=== PATIENT | male | born 1960 | race Caucasian/White ===

== ENCOUNTER → 2017-05-11 11:55 | Outpatient (CLI) | payer BC, SELFPAY | PROVIDERS: PCP Family Medicine; Visit Provider Family Medicine | DX: R06.81 Apnea, not elsewhere classified (principal); R06.83 Snoring; R40.0 Somnolence | CPT/HCPCS: 95806 ==

== ENCOUNTER → 2019-11-02 13:20 | Outpatient (CLI) | payer BC, OTHER, SELFPAY ==
--- NOTE | 2019-11-02 | XR_ITS ---
PROCEDURE: XR CHEST 2V CLINICAL HISTORY: COMPARISON: No exams were available for comparison FINDINGS: The cardiomediastinal silhouette and pulmonary vascularity are within normal limits. The lungs are clear without infiltrates, suspicious nodules, or pleural effusions. No acute bony abnormalities. IMPRESSION: No acute findings. Dictated by: Dr. Johnathan Diehl MD 11/02/2019 13:[address] Johnathan Diehl MD in [place] 11/02/2019 13:45
== END ==
PROVIDERS: PCP Family Medicine; Visit Provider Family Medicine
DX: I20.8 Other forms of angina pectoris (principal)
CPT/HCPCS: 71046

== ENCOUNTER 2022-03-15 08:09 | Emergency (ER) | payer OTHER, SELFPAY ==
--- NOTE | 2022-03-15 08:09 | ECG_ITS ---
APPROVED REPORT Exam: Resting ECG HR:80 bpm ECG Measurements Heart Rate 80 AXES ND 182 P 57 QRSd 90 QRS 76 QT 361 T 64 QTc 398 Conclusion SINUS RHYTHM NORMAL ECG UNCONFIRMED REPORT Electronically signed by : Aurelio Hernandez MD 03/15/2022 21:10:00
--- NOTE | 2022-03-15 08:09 | PC.NURSE ---
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 EKG obtained and given to ER MD. ER MD at during EKG, along with Rubina Ortega RN for triage.
[2022-03-15 08:11] VITALS: BP 171/107; PULSE 77; RESP 16; TEMP 36.6; O2SAT 100; BMI 28.8
--- NOTE | 2022-03-15 08:14 | XR_ITS ---
FINAL REPORT CLINICAL HISTORY: cp COMPARISON: 11/02/2019 FINDINGS: PORTABLE CHEST The heart is normal in size. The mediastinum is unremarkable. There is severe right basilar atelectasis. There is elevation of the right diaphragm. There is no pneumothorax. IMPRESSION: Severe right basilar atelectasis. No acute process. Reviewed, Interpreted and Dictated by Paul Vargas MD Transcribed by Juju Andersen Authenticated and [facility]
--- NOTE | 2022-03-15 08:18 | HMH.EDGENADL ---
Discharge Plan Disposition Chief Complaint: Chest Pain Prescriptions Prescriptions: No Action No Known Home Medications Referrals Follow up/Referrals: Provider,MD Jody [Primary Care Provider] - See instructions Discharge ED Provider: Jakob Pruitt General Adult HPI General Chief complaint: Chest Pain Stated complaint: Chest Pain Time Seen by Provider: 03/15/22 08:22 History of Present Illness HPI narrative: Patient presents with midsternal chest discomfort with which he awoke at approximately 7:40 AM this morning. He states the discomfort was moderate in severity at time of onset and presently is a 2 on a 0-to-10 scale. He denies exacerbating or alleviating factors. He denies radiation he denies nausea dyspnea or diaphoresis. Related Data Home Medications Medication Instructions Recorded Confirmed No Known Home Medications 03/15/22 03/15/22 Allergies Allergy/AdvReac Type Severity Reaction Status Date / Time No Known Allergies Allergy Verified 03/15/22 08:47 [facility] Medical History (Updated 03/15/22 @ 08:47 by Rubina Almaguer RN) No significant past medical history Social History Smoking Status: Unknown if ever smoked ROS Obtained: Yes All systems reviewed & no additional complaints except as documented Physical Exam General General appearance: alert and in no apparent distress Head Head exam: atraumatic, normocephalic and normal inspection Eye Eye exam: Present normal appearance, PERRL and EOMI ENT ENT exam: Present normal exam, normal oropharynx, mucous membranes moist, TM's normal bilaterally and normal external ear exam Neck Neck exam: Present normal inspection, full ROM and trachea midline; Absent meningismus or lymphadenopathy Chest Chest inspection: Present normal inspection and symmetric chest wall rise; Absent tenderness Respiratory Respiratory exam: Present normal lung sounds bilaterally; Absent respiratory distress Cardiovascular Cardiovascular exam: Present regular rate and normal rhythm; Absent JVD Abdominal Exam Abdominal exam: Present soft and normal bowel sounds; Absent distention, tenderness or guarding Extremities Exam Extremities exam: Present normal inspection, full ROM and normal capillary refill; Absent calf tenderness Back Exam Back exam: Present normal inspection; Absent tenderness Neurological Exam Neurological exam: Present alert and oriented X3 Psychiatric Psychiatric exam: Present normal affect and normal mood Skin Skin exam: Present warm, dry, intact and normal color Lymphatic Lymphatic Findings: no adenopathy Medical Decision Making Medical Records Medical records reviewed: Yes I reviewed the patient's medical records. Stephan Inquiry Pt receiving controlled substance: No Vital Signs: 03/15/22 08:11 03/15/22 08:30 Temperature 97.8 F Temperature Source Oral Pulse Rate 76 Pulse Rate [Right] 77 Respiratory Rate 16 15 Blood Pressure 137/97 H Blood Pressure [Right Arm] 171/107 H Blood Pressure Mean 111 Blood Pressure Mean [Right Arm] 128 Blood Pressure Source [Right Arm] Automatic Cuff Blood Pressure Position [Right Arm] Sitting 02 Sat by Pulse Oximetry 100 96 Oxygen Delivery Method Room Air Room Air Lab Data Lab Results 03/15/22 08:15: WBC 8.7, RBC 5.04, Hgb 15.1, Hct 45.8, MCV 90.8, MCH 29.9, MCHC 32.9, RDW 13.9, Plt Count 235, MPV 7.8, Neut % (Auto) 55.2, Lymph % (Auto) 33.4, [place] % (Auto) 7.8, Eos % (Auto) 2.5, Baso % (Auto) 1.2, Neut # (Auto) 4.8, Lymph # (Auto) 2.9, [place] # (Auto) 0.7, Eos # (Auto) 0.2, Baso # (Auto) 0.1 03/15/22 08:15: Sodium 141, Potassium 3.4 L, Chloride 98, Carbon Dioxide 29, Anion Gap 17.4 H, BUN 15, Creatinine 1.00, Estimated Creat Clear 91, Estimated GFR 75, Est GFR ( Amer) 91, Glucose 105 H, Calcium 9.4, Total Bilirubin 0.4, AST 32, ALT 29, Alkaline Phosphatase 121, Troponin I < 0.01, Total Protein 7.1, Albumin 4.4, Globulin 2.7,
--- NOTE | 2022-03-15 08:19 | PC.NURSE ---
Radiology at BS for portable chest
[2022-03-15 08:23] LABS: Basophils # 0.1 K/mm3 (0-0.2); Basophils % 1.2 % (0.1-2.0); Eosinophils # 0.2 K/mm3 (0.0-0.4); Eosinophils % 2.5 % (0.1-12.0); Hematocrit 45.8 % (42.0-52.0); Hemoglobin 15.1 g/dL (14.1-18.0); Lymphocytes # 2.9 K/mm3 (0.7-4.5); Lymphocytes % 33.4 % (10-50); Mean Corpuscular HGB Conc 32.9 g/dL (31.8-35.4); Mean Corpuscular Hemoglobin 29.9 pg (27.0-31.2); Mean Corpuscular Volume 90.8 fl (80-94); Mean Platelet Volume 7.8 fl (7.4-10.4); Monocytes # 0.7 K/mm3 (0.1-1.0); Monocytes % 7.8 % (1.7-9.3); Neutrophils # 4.8 K/mm3 (1.8-7.8); Neutrophils % 55.2 % (37.0-80.0); Platelet Count 235 K/mm3 (142-424); Red Blood Count 5.04 M/mm3 (4.60-6.20); Red Cell Distribution Width 13.9 % (11.5-17.5); White Blood Count 8.7 K/mm3 (4.8-10.8)
[2022-03-15 08:30] VITALS: BP 137/97; PULSE 76; RESP 15; O2SAT 96
[2022-03-15 08:31] LABS: Alanine Aminotransferase 29 U/L (12-78); Albumin Level 4.4 g/dl (3.5-5.0); Albumin/Globulin Ratio 1.6 (1.1-1.8); Alkaline Phosphatase 121 U/L (38-126); Anion Gap 17.4 mEq/L (5-15); Aspartate Amino Transferase 32 U/L (17-59); Bilirubin,Total 0.4 mg/dl (0.2-1.3); Blood Urea Nitrogen 15 mg/dl (9-20); Calcium 9.4 mg/dl (8.4-10.2); Carbon Dioxide 29 mmol/L (22.0-30.0); Chloride 98 mmol/L (98-107); Creatinine Clearance Estimated 91 mL/min (50-200); Estimated Glomerular Filt Rate 75 ml/min (>60); GFR (African American) 91 ML/MIN (>60); Globulin 2.7 g/dL (1.3-3.2); Glucose 105 mg/dl (74-100); Potassium 3.4 mmoL/L (3.5-5.1); Sodium 141 mmol/L (136-145); Total Protein,Serum 7.1 g/dl (6.3-8.2)
[2022-03-15 08:32] LABS: INR 0.95 (0.9-1.1); Prothrombin Time 10.3 seconds (10.1-12.5)
[2022-03-15 08:44] LABS: Troponin I < 0.01 ng/ml (0.00-0.034)
[2022-03-15 09:00] VITALS: BP 139/89; PULSE 71; O2SAT 94
--- NOTE | 2022-03-15 09:03 | PC.NURSE ---
REBEKAH MAURO at speaking with patient at this time.
--- NOTE | 2022-03-15 09:08 | PC.NURSE ---
Awaiting call back from BRAYAN Fang with cardiology. Spoke with Ruth in his office.
--- NOTE | 2022-03-15 09:23 | PC.NURSE ---
Rounded on pt at this time. Updated him that we were waiting on cardiology callback for consult. Pt agreeable with POC. No new needs at this time
[2022-03-15 09:26] VITALS: PULSE 87
--- NOTE | 2022-03-15 10:10 | PC.NURSE ---
Still awaiting call from BRAYAN Fang with Cardiology at this time.
--- NOTE | 2022-03-15 10:17 | PC.NURSE ---
Dr. Pruitt speaking with BRAYAN Valdovinos with Cardiology at this time
[2022-03-15 10:28] LABS: Coronavirus 19, PCR Not Detected (NotDetected); Influenza A, PCR Not Detected (NotDetected); Influenza B, PCR Not Detected (NotDetected)
--- NOTE | 2022-03-15 10:42 | PC.NURSE ---
LAB COMING FOR TROP
--- NOTE | 2022-03-15 10:44 | PC.NURSE ---
speaking with hospitalist
--- NOTE | 2022-03-15 10:44 | PC.NURSE ---
Dr. Pruitt does want 2nd troponin and Lab is aware to come draw
--- NOTE | 2022-03-15 10:45 | PC.NURSE ---
Notified care management of admission
--- NOTE | 2022-03-15 11:01 | PC.NURSE ---
Lab at BS to draw 2nd troponin
--- NOTE | 2022-03-15 11:33 | PC.NURSE ---
provided pt with lunch tray at this time. Pt resting in bed and has no new needs
[2022-03-15 11:35] LABS: Troponin I < 0.01 ng/ml (0.00-0.034)
--- NOTE | 2022-03-15 12:13 | PC.NURSE ---
Called report to Miranda. Updated pt
--- NOTE | 2022-03-15 12:32 | PC.NURSE ---
Dr. Fredrick Hagan at bedside with pt. HE discussed POC with Dr. Pruitt and decision was made for pt to d/c'ed home with cardiology in the am.
--- NOTE | 2022-03-15 12:43 | EXP.MED.CON ---
History of Present Illness *Admission Date: 03/15/22 *Reason for visit:: Chest pain *History of present illness: Patient is a 62-year-old male who states he woke up this morning and was having midsternal chest comfort. Moderate in severity center of chest, radiating to his side. Denies any nausea dyspnea or diaphoresis. Resolved spontaneously. No other concerns or complaints at this time. On arrival patient was hypertensive in a normal sinus rhythm. He is currently pain-free. Results of findings which includes unremarkable CBC he does have hypokalemia of 3.4. Chest x-ray unremarkable for acute process. Discussed control of his blood pressure and follow-up in cardiology clinic tomorrow. Patient is agreeable. [facility] Medical History No significant past medical history Social History Smoking Status: Unknown if ever smoked alcohol intake: never current occupational status: employed Travel in the last 8 weeks: None Review of Systems Constitutional Constitutional: Reports system reviewed and no additional complaints, except as documented Eyes Eyes: Reports system reviewed and no additional complaints, except as documented ENT Ears, Nose, Mouth, and Throat: Reports system reviewed and no additional complaints, except as documented *Cardiovascular Cardiovascular: Reports chest pain, Denies dyspnea, Reports leg edema and Denies radiating jaw, neck or arm pain *Respiratory Respiratory: Reports system reviewed and no additional complaints, except as documented and Denies dyspnea *Gastrointestinal Gastrointestinal: Reports system reviewed and no additional complaints, except as documented *Genitourinary Genitourinary: Reports system reviewed and no additional complaints, except as documented *Musculoskeletal Musculoskeletal: Reports system reviewed and no additional complaints, except as documented Integumentary/Breasts Skin/Breast: Reports system reviewed and no additional complaints, except as documented *Neurologic Neurologic: Reports system reviewed and no additional complaints, except as documented Psychiatric Psychiatric: Reports system reviewed and no additional complaints, except as documented Endocrine Endocrine: Reports system reviewed and no additional complaints, except as documented Hematologic/Lymphatic Hematologic/Lymphatic: Reports system reviewed and no additional complaints, except as documented Allergic/Immunologic Allergic/Immunologic: Reports system reviewed and no additional complaints, except as documented Meds Home Medications and Allergies Home Medications Medication Instructions Recorded Confirmed Type No Known Home Medications 03/15/22 03/15/22 History New Prescriptions to Start Prescriptions: Allergies Allergy/AdvReac Type Severity Reaction Status Date / Time No Known Allergies Allergy Verified 03/15/22 08:47 Results Labs Result Diagrams: 03/15/22 08:15 03/15/22 08:15 Labs: Abnormal lab results 03/15/22 Range/Units 08:15 Potassium 3.4 L (3.5-5.1) mmoL/L Anion Gap 17.4 H (5-15) mEq/L Glucose 105 H (74-100) mg/dl H & H 03/15/22 Range/Units 08:15 Hgb 15.1 (14.1-18.0) g/dL Hct 45.8 (42.0-52.0) % Coagulation 03/15/22 Range/Units 08:15 INR 0.95 (0.9-1.1) All other labs normal. Assessment and Plan *Assessment and plan (1) Chest pain: Status: Acute Category: Medical Code(s): R07.9 - Chest pain, unspecified (2) HTN (hypertension): Status: Acute Category: Medical Code(s): I10 - Essential (primary) hypertension Plan Patient is 62-year-old male with acute onset chest pain that resolved. He is not on any medications, on arrival he is hypertensive, troponin and delta troponins negative. Patient will benefit from cardiology follow-up outpatient and co
--- NOTE | 2022-03-15 12:59 | CA_ITS ---
APPROVED REPORT EXAM: Comprehensive 2D, Doppler, and color-flow Echocardiogram Automation Controls Expert: Alicia Sauer CRT Ht: 5 ft 8 in Wt: 190lbs BSA: 2.00 BP: 144/92 mmHg Indications: Chest Pain, Hypertension/HDD 2D Dimensions LVOT 1.98 cm (M/F) 1.5-2.5 LA Volume 37.60 mL LA Volume Index 18.30 mL/m2 (M/F) 16-34 M-Mode Dimensions RVDd 2.45 cm (0.9-2.6) LA Diam 3.64 cm (1.9-4.0) LVDd 4.12 cm (3.5-5.7) Ao Diam 3.54 cm (2.0-3.7) LVDs 2.28 cm (3.5-5.7) IVSd 1.74 cm (0.6-1.1) PWd 0.84 cm (0.6-1.1) EF (Teich) 76.40% FS 44.70% EDV (Teich) 75.10 mL TAPSE 2.62 (<1.7) ESV (Teich) 17.70 mL LV Diastology E Decel Time 183.00 (160-240 msec) E/A Ratio 0.93 MED E' 8.20 (< 7 cm/sec) MED A' 10.60 cm/s E'/MED E' Ratio 8.68 (>14) LAT E' 12.60 (<10 cm/sec) LAT A' 11.10 cm/s E/LAT E' Ratio 5.65 (>14) Aortic Valve AO Peak GR. 7.40 mmHg Mitral Valve MV A Velocity 76.00 (40-130 cm/s) E/A Ratio 0.93 MV Decel. Time 183.00 (160-240 ms) Pulmonary Valve PV Peak Velocity 112.00 (50-150 cm/s) Tricuspid Valve TR P. Velocity 205.00 cm/s RAP Estimate 10.00 mmHg RVSP 26.80 mmHg Left Ventricle Left atrium is mildly enlarged, left ventricle normal size, mild concentric left ventricular hypertrophy, estimated ejection fraction 55% with no regional wall motion abnormality, diastolic parameters are inconclusive in the study. Right Ventricle Right atrium and right ventricle are normal size and contractility. Aortic Valve Aortic valve is minimally thickened and fibrosed there is no aortic stenosis or aortic insufficiency. Mitral Valve Mitral valve is grossly normal, there is trace mitral regurgitation. Tricuspid Valve Tricuspid valve grossly normal, there is trace tricuspid regurgitation, tricuspid regurgitation jet velocity is inadequate for calculation of the right ventricular systolic pressure. Pulmonic Valve Pulmonic valve is poorly visualized. Great Vessels Aortic root is normal size. Inferior vena cava is normal size with normal inspiratory collapse. Pericardium No significant pericardial effusion noted. Conclusion 1. Mildly enlarged left atrium, normal left ventricular size, mild concentric left ventricular hypertrophy, estimated ejection fraction 55% with no regional wall motion abnormality, diastolic parameters are inconclusive in the study. 2. Trace mitral and tricuspid regurgitation. 3. No significant pericardial effusion noted. 4. Inferior vena cava is normal size with normal inspiratory collapse. Electronically signed by : Guillermo Brennan MD 03/16/2022 06:43:51
--- NOTE | 2022-03-15 13:00 | PC.NURSE ---
Spoke with Dr. Hagan who asked if pt could get an echo prior to going home so it could be reviewed at his cardiology appt tomorrow. Order entered as VO per Dr. Hagan. CV lab notified and updated pt on POC. PT agreeable with POC. No new needs at this time
[2022-03-15 13:36] VITALS: BP 147/72; PULSE 72; RESP 16; TEMP 36.8; O2SAT 98
== END 2022-03-15 13:38 | disposition home or self-care (01) ==
LOC: ER 11:04 → 2ND 11:28
PROVIDERS: Emergency Provider Emergency Medicine; PCP Family Medicine
DX: R07.9 Chest pain, unspecified (principal); Z82.49 Family history of ischemic heart disease and other diseases of the circulatory system
CPT/HCPCS: 36415; 71045; 80053; 84484; 85025; 85610; 93005; 93306; 99285; 99291; C9803; U0003; U0005